=== PATIENT | male | born 1965 | race Caucasian/White ===

== ENCOUNTER 2020-08-27 18:31 | Emergency (ER) | payer SELFPAY ==
[~2020-08-27] VITALS: Ht 172.7 cm; Wt 88.5 kg
[2020-08-27 18:40] VITALS: BP 133/96
[2020-08-27] MEDS ORDERED: IBUPROFEN 600 MG TABLET PO ONE (19:00)
[2020-08-27] MEDS ORDERED: IBUPROFEN 600 MG TABLET ONE (19:03)
== END 2020-08-27 19:35 | disposition home or self-care (01) ==
LOC: ER 18:35
DX: S42.002A Fracture of unspecified part of left clavicle, initial encounter for closed fracture (principal); W01.0XXA Fall on same level from slipping, tripping and stumbling without subsequent striking against object, initial encounter; Y93.01 Activity, walking, marching and hiking; Y92.89 Other specified places as the place of occurrence of the external cause; Y99.8 Other external cause status
CPT/HCPCS: 73030-TC